=== PATIENT | female | born 1965 | race Caucasian/White ===

== ENCOUNTER → 2017-08-20 16:27 | Outpatient (CLI) | payer BC, SELFPAY ==
--- NOTE | 2017-08-20 16:30 | MM_ITS ---
. MM Dig screening mamm BI w/CAD CAD Screening ORDERING PHYSICIAN : Regis Ochoa PATIENT AGE: 51 years GENDER: Female COMPARISON: Previous mammograms: August 2011. June 2015 INDICATION: Routine screening mammogram. Patient does use estrogen patch.. Previous benign stereotactic biopsy right breast TECHNIQUE: Standard CC and MLO images were obtained. R2 CAD reviewed. FINDINGS: Moderately dense breast bilaterally. Mild asymmetry mild inhomogeneous RIGHT BREAST:Parenchymal pattern right breast appears stable follow-up in one year on right adequate. No new areas of concern stable architectureThere is note that the patient has had previous stereotactic biopsy right breast but no metallic marker clip evident LEFT BREAST:There is slight increased density at the central left breast most focal nodular area LABELED A suggested on standard CC view. Where there is suggestion of a 8 mm nodule at the central breast. LABELED A. This may merely be a summation shadow with developing cyst would warrant spot views to further evaluate particularly since we see slight additional density in some areas on the other views, the MLO view and axillary cc view. A would suggest patient return for spot MLO, and cc spot views at area labeled A.. A full 90 degree view is also suggested to evaluate other areas.... An ultrasound then recommended subsequent to further evaluate these scattered areas of density in the left breast. Again There could be underlying cyst versus summation shadow accounting for this appearance.. But warrants additional imaging The patient also has some mild architectural variation at superior left breast but I believe these are stable since 2016.. IMPRESSION: ======== 1. LEFT BREAST: Subtle Nodular density at the central breast warrant additional spot views and ultrasound left breast. It could be summation shadow or developing cyst.. . Also Areas of subtle architectural variation at superiorly & inferior/central breast are most likely stable since 2016 but but will be survey when patient returns as well. Ultrasound left breast suggested after spot images performed 2. Right breast. No significant change follow-up in one year on right recommended BI-RADS Category: 0 Need Additional Imaging Evaluaiton . RECOMMENDED FOLLOW-UP: IMM - IMMEDIATE FOLLOW-UP RECOMMENDED Additional mammogram images left breast along with ultrasound left breast recommended (A letter has been sent to the patient regarding results of the study.)
== END ==
PROVIDERS: Family Provider Nurse Practitioner Family; PCP Internal Medicine Adolescent Medicine; Visit Provider Obstetrics & Gynecology
DX: Z12.31 Encounter for screening mammogram for malignant neoplasm of breast (principal)
CPT/HCPCS: 77067

== ENCOUNTER → 2017-09-12 13:33 | Outpatient (CLI) | payer BC, SELFPAY ==
--- NOTE | 2017-09-12 13:48 | US_ITS ---
US breast LT complete COMPARISON: Additional mammogram views left breast same date HISTORY: Possible developing asymmetric density left breast TECHNIQUE: Targeted ultrasound left breast FINDINGS: Is a small benign-appearing cyst 3:00 position near the nipple measuring 0.5 x 0.7 x 0.3 cm. There is another hypoechoic cystic lesion with internal echoes at the 6:00 position near the nipple with measurements as given on the mammogram report. There is a normal-appearing node in the axilla IMPRESSION: Benign-appearing simple cyst 3:00 position with what is likely a complex cyst at 6:00 position and recommend the patient return for 6 month follow-up left mammogram and ultrasound left breast to assure interval stability
--- NOTE | 2017-09-12 13:48 | MM_ITS ---
MM Dig mamm DX unilat LT CAD COMPARISON: Digital mammograms 08/20/2017 INDICATION: Possible asymmetric densities left breast versus summation shadows TECHNIQUE: Spot compression MLO and CC views were obtained along with a 90 degrees lateral view FINDINGS: The possible asymmetric density is less well seen on the spot views there is no definite architectural distortion. Ultrasound performed the same date showed one small benign-appearing cyst at the 3:00 position near the nipple measuring 0.7 x 0.3 x 0.5 cm. There is another small complex cyst at the 6:00 position near the nipple measuring 0.8 x 1.1 x 0.3 cm. There is a normal-appearing node in the axilla. IMPRESSION: Moderate breast density with the previous seen noted asymmetric density partially pressing out but apparently secondary to a complex cyst. Recommend the patient return for 6 month follow-up left mammogram and ultrasound to assure interval stability BI-RADS Category: 3 Benign Finding Short Term Follow-up RECOMMENDED FOLLOW-UP: 6M - 6 MONTH FOLLOW-UP (A letter has been sent to the patient regarding results of the study.)
== END ==
PROVIDERS: Family Provider Nurse Practitioner Family; PCP Internal Medicine Adolescent Medicine; Visit Provider Obstetrics & Gynecology
DX: R92.8 Other abnormal and inconclusive findings on diagnostic imaging of breast (principal)
CPT/HCPCS: 76641; 77065

== ENCOUNTER → 2018-03-03 13:32 | Outpatient (CLI) | payer BC, SELFPAY ==
--- NOTE | 2018-03-03 13:37 | US_ITS ---
MM Dig mamm DX unilat LT CAD Left breast ultrasound complete with axilla INDICATION: Follow-up abnormal mammogram ORDERING PHYSICIAN: Olga Long PATIENT AGE: 52 years COMPARISON: [id number] TECHNIQUE: Standard images along with compression views and left breast ultrasound FINDINGS: There is dense fibroglandular tissue which decreases the sensitivity of mammography. Asymmetric density noted in the medial aspect of the left breast present on multiple previous exams consistent with fibroglandular tissue. Spot compression view shows benign-appearing nodular opacity in the retroareolar region 5 mm. Asymmetry also noted in the inferior aspect of the left breast which is unchanged. No malignant appearing mass or malignant appearing microcalcification. Left breast ultrasound: A complex hypoechoic nodule measuring 1 x 0.5 cm is present at 6:00. This nodule is hypoechoic with some irregularity of the margin and is slightly larger compared to the previous study.. The nodule does not demonstrate enhanced through transmission of sound. Ultrasound-guided fine-needle aspiration is recommended. A 6 mm cyst is also noted at 6:00. IMPRESSION: Mildly suspicious hypoechoic 1 cm nodule at 6:00. Ultrasound-guided attempted cyst aspiration/FNA suggested BI-RADS Category: 4 Suspicious Abnormality-Biopsy Considered RECOMMENDED FOLLOW-UP: BIO - BIOPSY RECOMMENDED (A letter has been sent to the patient regarding results of the study.)
== END ==
PROVIDERS: Family Provider Nurse Practitioner Family; PCP Internal Medicine Adolescent Medicine; Visit Provider Nurse Practitioner Family
DX: R92.8 Other abnormal and inconclusive findings on diagnostic imaging of breast (principal)
CPT/HCPCS: 76641; 77065

== ENCOUNTER → 2018-03-13 12:30 | Outpatient (CLI) | payer BC, SELFPAY ==
--- NOTE | 2018-03-13 13:13 | US_ITS ---
FNA w guidance HISTORY: Left breast nodule ORDERING PHYSICIAN: Olga Long PATIENT AGE: 52 years COMPARISON: 09/12/2017, 03/03/2018 Prebiopsy ultrasound: The suspicious nodule in 6:00 region left breast was localized and biopsy site marked. TECHNIQUE: Following obtaining informed consent, using aseptic technique and local anesthesia with buffered lidocaine, fine-needle aspiration was performed of the nodule of interest using sonographic guidance. One pass was made into the nodule with 25-gauge needle. The nodule did not aspirate therefore, core biopsy was performed with 3 passes into the nodule with 16-gauge core biopsy needle. Specimens were sent for cytology and pathology. The patient tolerated the procedure well without evidence of immediate complications and left the ultrasound suite in stable condition. 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 Complete excision was recommended by the pathologist. IMPRESSION: Successful sonographic guided left breast biopsy showing a hyalinized papilloma. Excisional biopsy recommended.
== END ==
PROVIDERS: PCP Internal Medicine Adolescent Medicine; Visit Provider Nurse Practitioner Family
DX: N63.24 Unspecified lump in the left breast, lower inner quadrant (principal)
CPT/HCPCS: 10022; 76641; 76942

== ENCOUNTER → 2020-10-03 13:35 | Outpatient (CLI) | payer BC, SELFPAY ==
[2020-10-03 13:44] LABS: Basophils # 0.1 K/mm3 (0-0.2); Basophils % 0.4 % (0.1-2.0); Eosinophils # 0.2 K/mm3 (0.0-0.4); Eosinophils % 1.7 % (0.1-12.0); Hematocrit 39.4 % (37.0-47.0); Hemoglobin 13.2 g/dL (12.2-16.2); Mean Corpuscular HGB Conc 33.4 g/dL (31.8-35.4); Mean Corpuscular Hemoglobin 30.6 pg (27.0-31.2); Mean Corpuscular Volume 91.7 fl (81-99); Monocytes # 0.5 K/mm3 (0.1-1.0); Monocytes % 4.3 % (1.7-9.3); Neutrophils # 6.9 K/mm3 (1.8-7.8); Neutrophils % 65.6 % (37.0-80.0); Platelet Count 337 K/mm3 (142-424); Red Cell Distribution Width 13.2 % (11.5-17.5); White Blood Count 10.6 K/mm3 (4.8-10.8)
[2020-10-03 15:21] LABS: Alanine Aminotransferase 30 U/L (12-78); Albumin Level 4.3 g/dl (3.5-5.0); Albumin/Globulin Ratio 1.7 (1.1-1.8); Alkaline Phosphatase 69 U/L (38-126); Anion Gap 8.4 mEq/L (5-15); Aspartate Amino Transferase 29 U/L (14-36); Bilirubin,Total 0.6 mg/dl (0.2-1.3); Blood Urea Nitrogen 15 mg/dl (7-17); Calcium 8.9 mg/dl (8.4-10.2); Carbon Dioxide 27 mmol/L (22.0-30.0); Chloride 106 mmol/L (98-107); Chol/HDL Ratio 5.5 (1-3.5); Cholesterol 138 mg/dl (140-200); Estimated Glomerular Filt Rate 65 ml/min (>60); GFR (African American) 78 ML/MIN (>60); Globulin 2.5 g/dL (1.3-3.2); Glucose 89 mg/dl (74-100); HDL Cholesterol 25 mg/dl (40-60); Potassium 4.4 mmoL/L (3.5-5.1); Sodium 137 mmol/L (136-145); Total Protein,Serum 6.8 g/dl (6.3-8.2); Triglycerides 347 mg/dl (30-150); VLDL Cholesterol 69 mg/dL (0-40)
[2020-10-03 15:48] LABS: 25-OH Vitamin D, Total 63.3 ng/mL (30-100)
== END ==
PROVIDERS: Visit Provider Internal Medicine Adolescent Medicine
DX: F41.8 Other specified anxiety disorders (principal); E78.2 Mixed hyperlipidemia; E55.9 Vitamin D deficiency, unspecified
CPT/HCPCS: 80053; 80061; 82306; 85025

== ENCOUNTER → 2020-12-14 08:43 | Outpatient (CLI) | payer BC, SELFPAY ==
--- NOTE | 2020-12-14 08:48 | XR_ITS ---
PROCEDURE: XR DEXA AXIAL SKELETON CLINICAL HISTORY: GARRETT SCREENING COMPARISON: No exams were available for comparison FINDINGS: The right hip BMD is 0.847 with a T-score of 0.0. The left hip BMD is 0.818 with a T-score of -0.3. The lumbar spine BMD is 1.142 with a T-score of 0.9. IMPRESSION: This patient is considered normal according to the World Health Organization criteria. Fracture risk is low. Based on these results a follow-up exam is recommended in one year. Dictated by: Angel Luis Driver MD 12/14/2020 16:49 Angel Luis Driver MD in [place] 12/14/2020 16:49
== END ==
PROVIDERS: PCP Internal Medicine Adolescent Medicine; Visit Provider Obstetrics & Gynecology
DX: N95.1 Menopausal and female climacteric states (principal); Z13.820 Encounter for screening for osteoporosis
CPT/HCPCS: 77080

== ENCOUNTER → 2021-02-23 09:29 | Outpatient (CLI) | payer BC, SELFPAY ==
[2021-02-24 11:15] LABS: FSH 0.6 mIU/mL (.)
[2021-02-27 23:17] LABS: Testosterone, Total, LC/MS 25.9 ng/dL (.); Testosterone,Free 3.3 pg/mL (0.0-4.2)
== END ==
PROVIDERS: Visit Provider Obstetrics & Gynecology
DX: N95.1 Menopausal and female climacteric states (principal)
CPT/HCPCS: 36415; 82670; 83001; 84402; 84403

== ENCOUNTER → 2022-01-10 08:39 | Outpatient (CLI) | payer BC, SELFPAY ==
[2022-01-10 10:43] LABS: 25-OH Vitamin D, Total 50.4 ng/mL (30-100)
[2022-01-10 10:59] LABS: Chloride 107 mmol/L (98-107); Potassium 4.3 mmoL/L (3.5-5.1); Sodium 141 mmol/L (136-145)
[2022-01-10 11:01] LABS: Blood Urea Nitrogen 16 mg/dl (7-17); Estimated Glomerular Filt Rate 64 ml/min (>60); GFR (African American) 78 ML/MIN (>60)
[2022-01-10 11:02] LABS: Alanine Aminotransferase 31 U/L (12-78); Albumin Level 4.4 g/dl (3.5-5.0); Albumin/Globulin Ratio 1.7 (1.1-1.8); Alkaline Phosphatase 80 U/L (38-126); Anion Gap 11.3 mEq/L (5-15); Aspartate Amino Transferase 31 U/L (14-36); Bilirubin,Total 0.2 mg/dl (0.2-1.3); Carbon Dioxide 27 mmol/L (22.0-30.0); Cholesterol 146 mg/dl (140-200); Globulin 2.6 g/dL (1.3-3.2); Triglycerides 300 mg/dl (30-150); VLDL Cholesterol 60 mg/dL (0-40)
[2022-01-10 11:03] LABS: Calcium 9.2 mg/dl (8.4-10.2); Chol/HDL Ratio 5.6 (1-3.5); Glucose 107 mg/dl (74-100); HDL Cholesterol 26 mg/dl (40-60)
[2022-01-10 11:07] LABS: Erythrocyte Sedimentation Rate 21 mm/hr (0-30)
[2022-01-11 08:56] LABS: Direct LDL Cholesterol 58 mg/dL (100-129)
== END ==
PROVIDERS: PCP Nurse Practitioner Family; Visit Provider Nurse Practitioner Family
DX: E78.2 Mixed hyperlipidemia (principal); E55.9 Vitamin D deficiency, unspecified; M19.049 Primary osteoarthritis, unspecified hand
CPT/HCPCS: 36415; 80053; 80061; 82306; 85651

== ENCOUNTER → 2022-07-24 16:49 | Outpatient (CLI) | payer BC, SELFPAY ==
--- NOTE | 2022-07-24 16:52 | MR_ITS ---
PROCEDURE INFORMATION: Exam: MR Cervical Spine Without Contrast Exam date and time: 07/24/2022 5:21 PM Age: 56 years old Clinical indication: Neck pain TECHNIQUE: Imaging protocol: Magnetic resonance imaging of the cervical spine without contrast. COMPARISON: No relevant prior studies available. FINDINGS: Bones/joints: Straightening of the cervical lordosis which can be attributed to muscle spasm/contracture.Vertebral alignment is otherwise maintained. Vertebral body heights are maintained. Focal hemangioma at C5 vertebra. No marrow replacing process. Spinal cord: Spinal cord is normal in signal characteristics. C2-C3: No significant disc bulge or herniation. No severe spinal canal stenosis. No significant neural foraminal narrowing. C3-C4: There is no significant spinal canal stenosis.Uncovertebral and facet arthropathy produce mild bilateral neural foraminal narrowing. C4-C5: No significant disc bulge or herniation. No severe spinal canal stenosis. No significant neural foraminal narrowing. C5-C6: Central disc protrusion produces mild spinal canal stenosis.Uncovertebral and facet arthropathy produce moderate bilateral neural foraminal narrowing. C6-C7: Central disc protrusion and ligamentum flavum redundancy produce moderate spinal canal stenosis. There is moderate bilateral neural foraminal narrowing. C7-T1: No significant disc bulge or herniation. No severe spinal canal stenosis. No significant neural foraminal narrowing. Soft tissues: Unremarkable. Vasculature: Expected flow voids in the vertebral arteries. IMPRESSION: Multilevel degenerative changes most significant at C6-C7 producing moderate spinal canal stenosis and moderate bilateral neural foraminal narrowing.
== END ==
PROVIDERS: PCP Nurse Practitioner Family; Visit Provider Nurse Practitioner Family
DX: M54.2 Cervicalgia (principal); M54.12 Radiculopathy, cervical region
CPT/HCPCS: 72141; 76376

== ENCOUNTER 2023-05-30 15:06 | Outpatient (CLI) | payer BC, SELFPAY | END 2023-05-30 23:59 | LOC: RT 15:06 | PROVIDERS: PCP Nurse Practitioner Family; Visit Provider Nurse Practitioner Family | DX: G47.33 Obstructive sleep apnea (adult) (pediatric) (principal); G47.36 Sleep related hypoventilation in conditions classified elsewhere; R06.83 Snoring; R40.0 Somnolence | CPT/HCPCS: G0399 ==

== ENCOUNTER → 2023-11-06 20:19 | Outpatient (CLI) | payer BC, SELFPAY | LOC: SL 20:21 | PROVIDERS: PCP Nurse Practitioner Family; Visit Provider Specialist | DX: G47.33 Obstructive sleep apnea (adult) (pediatric) (principal); R68.2 Dry mouth, unspecified | CPT/HCPCS: 95811 ==